=== PATIENT | male | born 1990 | race Caucasian/White ===

== ENCOUNTER 2021-01-12 10:48 | Emergency (ER) | payer SELFPAY ==
[~2021-01-12] VITALS: Ht 167.6 cm; Wt 67.3 kg
[2021-01-12 10:53] VITALS: BP 102/58
== END 2021-01-12 11:48 | disposition home or self-care (01) ==
LOC: EMS 11:06
DX: B02.9 Zoster without complications (principal)
CPT/HCPCS: 99283; Z7502